=== PATIENT | male | born 1935 | race Caucasian/White ===

== ENCOUNTER → 2019-09-14 12:14 | Outpatient (CLI) | payer MEDICARE, SELFPAY ==
--- NOTE | ~2019-09-14 | MR_ITS ---
EXAMINATION: MR lumbar spine wo con EXAM DATE: 09/14/2019 13:01 INDICATION: Low back pain and bilateral leg pain, symptoms for 6 months. TECHNIQUE: Multi-sequential, multiplanar MR images of the lumbar spine were obtained without contrast . Sagittal T1, T2, T2 fat saturation images. Axial T2 weighted images. Comparison is made to prior examination from 01/22/2017. FINDINGS: There is mild to moderate disc disease T11-12 and L4-S1, otherwise the lumbar disc heights are maintained. Diffuse lumbar disc desiccation. The conus medullaris terminates at the L1/2 level an d has normal signal intensity and morphology. The vertebral bodies are aligned in the AP dimension. T here are no suspicious marrow signal abnormalities. Retroperitoneal lymphadenopathy. Level by level evaluation: T11-12: There is a mild diffuse disc bulge. Facet arthropathy: Mild. Neural foraminal stenosis: No stenosis. Central canal stenosis: No stenosis. T12-L1: Disc does not extend beyond the endplate margin. Facet arthropathy: Mild to moderate. Neural foraminal stenosis: No stenosis. Central canal stenosis: No stenosis. L1-L2: Disc does not extend beyond the endplate margin. Facet arthropathy: Mild to moderate. Neural foraminal stenosis: No stenosis. Central canal stenosis: No stenosis. L2-L3: There is a mild diffuse disc bulge. Facet arthropathy: Mild to moderate. Neural foraminal stenosis: Mild right. Central canal stenosis: No stenosis. L3-L4: There is a mild to moderate diffuse disc bulge. Facet arthropathy: Moderate left, mild to moderate right. Neural foraminal stenosis: Minimal bilateral. Central canal stenosis: Mild. L4-L5: There is a moderate diffuse disc bulge asymmetric to the right. Facet arthropathy: Moderate left, mild to moderate right. Left-sided ligamentum flavum hypertrophy. Neural foraminal stenosis: Mild to moderate bilateral. Central canal stenosis: Mild to moderate. L5-S1: There is a moderate diffuse disc bulge. Facet arthropathy: Mild to moderate bilateral. Neural foraminal stenosis: Moderate right, mild to moderate left. Central canal stenosis: Mild. Compared to 2017 examination, some improvement in the retroperitoneal lymphadenopathy in patient with known history of lymphoma and prostate cancer. As far spondylosis, difficult to appreciate any signi ficant interval change. IMPRESSION: 1. Mild to moderate lumbar spondylosis. 2. Retroperitoneal lymphadenopathy, interval improvement. Reviewed, dictated and finalized at location G.
== END ==
PROVIDERS: Visit Provider Orthopaedic Surgery
DX: M47.896 Other spondylosis, lumbar region (principal)
CPT/HCPCS: 72148

== ENCOUNTER 2019-11-03 00:49 | Day surgery (SDC) | payer MEDICARE, SELFPAY ==
[2019-11-02 16:17] VITALS: BMI 26.9
[2019-11-03] VITALS (8 sets, daily range): BP systolic 106–170; BP diastolic 60–92; PULSE 70–92; RESP 10–20; TEMP 36–36.8; O2SAT 95–99; BMI 26.7
--- NOTE | ~2019-11-03 | XR_ITS ---
CORRECTD REPORT EXAMINATION DESCRIPTION CORRECTED 11/13/2019 [facility] [place]: XR fluoroscopy <1hr EXAM DATE: 11/03/2019 09:29 INDICATION: Retrograde urethrogram TECHNIQUE: Fluoroscopy used during XR fluoroscopy <1hr performed by Dr. Abelardo Girard MD. The DAP for this procedure was 0.4 mGym2. Cine run(s) available for review. FINDINGS: Urethra cystogram was performed, canal urethra injected. There is narrowing or stricturing of the membranous segment of the urethra. There is also suspicion of filling defect just proximal to the narrowed/strictured segment. Correlate with procedure note. IMPRESSION: Membranous urethral narrowing/stricturing and suspect intraluminal filling defect just proximal to this. Reviewed, dictated and finalized at location B. MTDD
--- NOTE | 2019-11-03 07:20 | WPDHPUPDATE1 ---
History and Physical Update Update Date/Time: 11/03/19 07:20 History and Physical has been reviewed, including an updated exam of the patient. There are NO changes in the patient's condition. Risks, benefits, and alternatives have been discussed and questions answered. Patient agrees to proceed with procedure.
--- NOTE | 2019-11-03 07:24 | P.PNAN_ITS ---
Anes - Initial Pre Proc Eval Procedure: Operation Date: 11/03/19 08:30 Proposed Procedures p Cystoscopy, Retrograde Urethrogram With Urethral Dilation - Abelardo Girard MD Date/Time: 11/03/19 07:24 Surgeon: Abelardo Girard MD Pre Op Diagnosis: Urethral Stricture Patient Data Age: 83 Gender: M Height: 5 ft 6 in Weight: 75.75 kg Allergies Allergy/AdvReac Type Severity Reaction Status Date / Time codeine AdvReac Nausea and Verified 11/02/19 16:07 Vomiting hydrocodone [From [place]] AdvReac Nausea and Verified 11/02/19 15:32 Vomiting lisinopril AdvReac Itching Verified 11/02/19 16:07 tramadol AdvReac Nausea and Verified 11/02/19 16:06 Vomiting Home Medications Medication Instructions Recorded Confirmed Type atorvastatin 20 mg PO HS 11/02/19 11/02/19 History calcium carbonate-vitamin D3 1 cap PO DAILY 11/02/19 11/02/19 History [Calcium 600 + D(3)] coQ10 (ubiquinol) 100 mg PO DAILY 11/02/19 11/02/19 History diazepam 2 mg PO HS PRN 11/02/19 11/02/19 History famotidine 20 mg PO BID 11/02/19 11/02/19 History lactobacillus combination no.8 3,000 mmu cells PO DAILY 11/02/19 11/02/19 History [Adult Probiotic] magnesium 250 mg PO DAILY 11/02/19 11/02/19 History omega 6-eys-hsk-fish oil [Fish Oil] 1 cap PO DAILY 11/02/19 11/02/19 History vitamin E 400 unit PO DAILY 11/02/19 11/02/19 History Patient hx anesthesia problems: none Family hx anesthesia problems: none PMFSH Past Medical History Medical History GERD (gastroesophageal reflux disease) Hyperlipidemia MICHELLE (obstructive sleep apnea) Prostate CA Social History Social History Smoking packs per day: 0.5 Smoking cigarettes per day: 10.0 Years smoked: 3 Smoking pack-years: 1.50 Smoking status: Former smoker Tobacco type: cigarettes Smoking end date: 03/15/89 Alcohol intake: current Alcohol use details: WINE/BEER TWICE A MONTH Living arrangements: with family Spiritual care concerns: No Anes - Eval Final PreProcedure Day of Procedure 11/03/19 07:24 Patient weight: overweight Heart: regular rate and rhythm Lungs: decreased breath sounds Airway: Mallampati scale class II Neurological: other (alert) Last oral intake: >/= 8 hours ASA classification: III Emergent: no Anesthetic plan: proceed Anesthesia type and monitoring: general LMA and standard monitoring Informed Consent: The patient's anesthetic plan and its attendant risks and benefits were discussed with the patient/family/POA. Questions were solicited and answers provided to the satisfaction of the patient/family/POA.
--- NOTE | 2019-11-03 07:30 | ECG_ITS ---
Measurements Intervals [place] Rate: 81 P: 52 LA: 182 QRS: -20 QRSD: 96 T: 47 QT: 388 QTc: 453 Interpretive Statements SINUS RHYTHM BASELINE ARTIFACT- V1 NORMAL ECG Electronically Signed On 11-03-2019 8:25:08 CDT by Ruddy Shaffer D.O.
[2019-11-03] MEDS: LACTATED RINGERS 1,000 ML 30 ML IV CONT ×2 (08:04→10:04)
[2019-11-03] MEDS: ceFAZolin 2 GM/D5W 50 ML 2 GM/50 ML BAG IVPB (08:40)
[2019-11-03] MEDS: LIDOCAINE HCL 2% GEL UROJET 10 ML PKG MUCOUS MEM (09:03)
--- NOTE | 2019-11-03 09:11 | PM.PROC ---
Procedure Note - Detailed Date of procedure: 11/03/19 Pre-op diagnosis: Urethral Stricture Post-op diagnosis: same Procedure performed: retrograde urethra g, cystoscopy, urethral dilation, complex Silva catheter placement 20 [place] tip Description of procedure: patient was taken the operative suite and correctly identified. Once anesthesia was obtained he was placed in a dorsal lithotomy position and prepped and draped usual sterile fashion. Nineteen [place] scope inserted into the urethra. He has a pinpoint opening. We performed a retrograde urethrogram with a 16 [place] Red rubber catheter. We were able to get contrast to make its way into the bladder and appeared to be a short distance stricture. 1-2 mm. At this point time we were able to manipulate an angled Glidewire through the pinhole opening into the bladder under fluoroscopy. An 810 dilator was used to dilate. We exchange the Glidewire out for a superstiff wire. We then dilated the urethra using amplantz dilators. We dilated up to 22 [place]. Cystoscopy was then performed there were no other strictures noted. Prostate has some lateral lobe hypertrophy the bladder itself shows no evidence of tumors or irregularities. 2% viscous lidocaine was inserted into urethra. Twenty [place] was then passed over the wire into the bladder. 10 cc was placed in the balloon. Silva was connected to catheter drainage. He is taken recovery room stable condition. I will have him follow up next week a the Wednesday or Wednesday for Silva catheter removal and voiding trial. Anesthesia: GLMA Surgeon: Abelardo Girard MD Drains: Yes Packing: No Pathology: none sent Complications: No immediate complications Condition: stable Disposition: PACU
== END 2019-11-03 11:25 | disposition home or self-care (01) ==
PROVIDERS: PCP Nurse Practitioner Family; Visit Provider Urology
PROC: 0T7D8ZZ Dilation of Urethra, Via Natural or Artificial Opening Endoscopic (ICD-10-PCS; CPT 52281; principal; 2019-11-03 08:30)
DX: N35.919 Unspecified urethral stricture, male, unspecified site (principal); E78.5 Hyperlipidemia, unspecified
CPT/HCPCS: 52281; 74450; 76000; 93005; A9270; C1726; C1769; J0690; J1100; J2405; J2704; J3010; J7120

== ENCOUNTER → 2022-02-12 10:22 | Outpatient (CLI) | payer MEDICARE, SELFPAY ==
--- NOTE | ~2022-02-12 | MR_ITS ---
EXAMINATION: MR lumbar spine wo con DATE: 02/12/2022 11:14 INDICATION: Lumbago. TECHNIQUE: Magnetic resonance imaging (MRI) of the lumbar spine was performed without intravenous con trast. Sequences included sagittal T2-weighted FSE, sagittal T2-weighted FS FSE, sagittal T1-weighted FSE, and axial T2-weighted FSE. COMPARISON: Lumbar spine MRI 09/14/2019 FINDINGS: There is 13 degrees dextroscoliosis of thoracolumbar spine. Vertebral body heights are norm al. There is severely decreased disc height at L4-L5 and L5-S1 with endplate remodeling. The distal s hans cord signal intensity is normal. The conus medullaris is at L1-L2. The following disc levels ar e specifically discussed: L1-L2: The disc does not extend beyond the endplate margin. There is moderate right and severe left f acet joint osteoarthritis. There is mild lateral neural foraminal stenosis. There is no central canal stenosis. L2-L3: There is a right foraminal protrusion. There is severe bilateral facet joint osteoarthritis. T here is mild bilateral neural foraminal stenosis. There is no central canal stenosis. L3-L4: The disc is bulging. There is severe bilateral facet joint osteoarthritis. There is mild bilat eral neural foraminal stenosis. There is mild central canal stenosis. L4-L5: The disc is bulging and has an annular fissure. There is severe bilateral facet joint osteoart hritis. There is moderate right and mild left neural foraminal stenosis. There is mild central canal stenosis. L5-S1: The disc is bulging and has an annular fissure. There is severe bilateral facet joint osteoart hritis. There is mild bilateral neural foraminal stenosis. There is mild central canal stenosis. IMPRESSION: 1. Severe lower lumbar spondylosis, stable from 09/14/2019. Reviewed, dictated and finalized at location A. CTOR OF RESERVATIONS
== END ==
PROVIDERS: PCP Family Medicine Sports Medicine; Visit Provider Nurse Practitioner Family
DX: M47.896 Other spondylosis, lumbar region (principal)
CPT/HCPCS: 72148